=== PATIENT | male | born 2000 | race Two or more races ===

== ENCOUNTER 2024-04-15 21:10 | Emergency (ER) | payer OTHER, SELFPAY ==
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
[2024-04-15 21:14] VITALS: BP 146/98; PULSE 71; TEMP 36.5; O2SAT 99; BMI 24.3
[2024-04-15] MEDS: ADACEL DIPH,PERTUSS(ACELL),TET VAC/PF 0.5 ML ADULT SYRINGE IM (21:26)
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
[2024-04-15 22:37] VITALS: BP 114/72; PULSE 68; O2SAT 97
[2024-04-15] MEDS: IBUPROFEN 400 MG TABLET 800 MG PO (22:53)
== END 2024-04-15 23:00 | disposition home or self-care (01) ==
PROVIDERS: Emergency Provider Emergency Medicine
DX: S20.219A Contusion of unspecified front wall of thorax, initial encounter (principal); V43.52XA Car driver injured in collision with other type car in traffic accident, initial encounter; Z23 Encounter for immunization
CPT/HCPCS: 71045; 90471; 90715; 99284